=== PATIENT | female | born 1990 | race Hispanic/Latino ===

== ENCOUNTER 2022-06-28 11:42 | Emergency (ER) | payer OTHER ==
[~2022-06-28] VITALS: Ht 149.9 cm; Wt 56.2 kg
[2022-06-28] MEDS ORDERED: HYDROCODONE/APAP 7.5MG-325MG 1 EA TAB PO PRN (14:15)
[2022-06-28 14:59] VITALS: BP 124/87
== END 2022-06-28 15:00 | disposition home or self-care (01) ==
LOC: ER 11:50
DX: M79.642 Pain in left hand (principal); S60.222A Contusion of left hand, initial encounter; W22.09XA Striking against other stationary object, initial encounter; Y92.89 Other specified places as the place of occurrence of the external cause
CPT/HCPCS: 99283